=== PATIENT | female | born 1990 | race African-American/Black ===

== ENCOUNTER 2021-06-14 11:52 | Emergency (ER) | payer MEDICAID ==
[~2021-06-14] VITALS: Ht 165.1 cm; Wt 48.0 kg
[2021-06-14] MEDS ORDERED: AMOX-494 MT (14:13)
[2021-06-14 14:17] VITALS: BP 135/79
[2021-06-15] MEDS ORDERED: TRAM50TA MT (11:23)
[2021-06-15] MEDS ORDERED: IBUP-2028 MT (11:23)
== END 2021-06-14 14:20 | disposition home or self-care (01) ==
LOC: ER 11:52
DX: K04.7 Periapical abscess without sinus (principal)
CPT/HCPCS: 99283

== ENCOUNTER 2021-06-15 10:22 | Emergency (ER) | payer MEDICAID ==
[~2021-06-15] VITALS: Ht 165.1 cm; Wt 48.0 kg
[~2021-06-15 10:22] MED LIST: AMOX-494 MT
[2021-06-15] MEDS ORDERED: KETOROLAC 60MG/2ML VIAL IM ONE (11:15)
[2021-06-15] MEDS ORDERED: IBUP-2028 MT (11:23)
[2021-06-15] MEDS ORDERED: TRAM50TA MT (11:23)
[2021-06-15 12:06] VITALS: BP 119/86
== END 2021-06-15 12:06 | disposition home or self-care (01) ==
LOC: ER 10:22
DX: R51.9 Headache, unspecified (principal); K04.7 Periapical abscess without sinus
CPT/HCPCS: 81025; 96372; 99283; J1885

== ENCOUNTER 2021-08-12 08:46 | Emergency (ER) | payer MEDICAID ==
[~2021-08-12] VITALS: Ht 165.1 cm; Wt 46.0 kg
[~2021-08-12 08:46] MED LIST changes: +IBUP-2028 MT; +TRAM50TA MT
[2021-08-12] MEDS ORDERED: AMOX-494 MT (10:58)
[2021-08-12] MEDS ORDERED: IBUP-2030 MT (10:58)
[2021-08-12] MEDS ORDERED: TRAM50TA3 MT (10:58)
[2021-08-12 11:12] VITALS: BP 131/78
== END 2021-08-12 11:13 | disposition home or self-care (01) ==
LOC: ER 08:46
DX: K04.7 Periapical abscess without sinus (principal)
CPT/HCPCS: 81025; 99282; 99283

== ENCOUNTER 2022-04-04 11:24 | Emergency (ER) | payer MEDICAID ==
[~2022-04-04] VITALS: Ht 162.6 cm; Wt 45.0 kg
[~2022-04-04 11:24] MED LIST changes: +IBUP-2030 MT; +TRAM50TA3 MT
[2022-04-04 11:25] VITALS: BP 116/75
[2022-04-04] MEDS ORDERED: HYDROCODONE/ACETAMINOPHEN 5/325MG TABLET PO ONE (11:45)
[2022-04-04] MEDS ORDERED: IBUP-2029 MT (12:12)
[2022-04-04] MEDS ORDERED: T3 PO (12:12)
[2022-04-04] MEDS ORDERED: AMOX1TAB16 MT (12:12)
== END 2022-04-04 14:37 | disposition home or self-care (01) ==
LOC: ER 11:24
DX: R68.84 Jaw pain (principal)
CPT/HCPCS: 99283